=== PATIENT | female | born 1940 | race Asian ===

== ENCOUNTER 2016-10-23 05:07 | Inpatient (IN) | payer MEDICARE, MEDICAID ==
[~2016-10-23] VITALS: Ht 170.2 cm; Wt 84.9 kg
[~2016-10-23 05:07] MED LIST: AMLO10TA4 PO; AMLO2.5T PO; AMLO5TAB2 PO; AMOX-291 PO; ASPI-515 PO; ATOR10TA PO; ATOR40TA78 PO; CARV12.52 PO; CEFD300C37 PO; CHLO25TA MT; GUAI200T3 PO; HYDR-3341 PO; HYDR-3342 PO; INSU100V13 SC; INSU100V5 SQ-INSULIN; LISI-170 PO; NOVOLOG 70/30 SQ; QUIN40TA PO; QUIN40TA7 PO; STATIN
[2016-10-23] MEDS ORDERED: SODIUM CHLORIDE 0.9% 1,000ML IVBOLUS ONE ×2 (05:30→07:30)
[2016-10-23 05:59] LABS: HEMATOCRIT 28.4 % (34.6-47.8); HEMOGLOBIN 9.4 g/dL (11.7-16.4); WHITE BLOOD COUNT 11.9 x10^3/uL (3.4-10)
[2016-10-23 06:18] LABS: BLOOD UREA NITROGEN 53 mg/dL (7-18)
[2016-10-23 06:22] LABS: IS PT STATUS REG ER OR PRE ER? YES
[2016-10-23] MEDS ORDERED: IRON45TA6 PO (07:38)
[2016-10-23] MEDS: INSULIN DETEMIR 100 UNITS/ML, PEN SQ-INSULIN SCH ×2 (09:00→21:53)
[2016-10-23] MEDS: ASPIRIN 81 MG TABLET EC PO SCH (09:00)
[2016-10-23] MEDS ORDERED: hydrALAzine 20 MG/ML, 1ML IVPush PRN (09:00)
[2016-10-23] MEDS: CARVEDILOL 12.5 MG TABLET PO SCH ×2 (09:00→21:52)
[2016-10-23] MEDS ORDERED: DEXTROSE 50%, 50ML SYRINGE IVPush PRN (09:00)
[2016-10-23] MEDS ORDERED: morphine SULFATE 10 MG/ML, 1ML IVPush PRN (09:00)
[2016-10-23] MEDS ORDERED: DEXTROSE 4 GM TAB.CHEW PO PRN (09:00)
[2016-10-23] MEDS ORDERED: POLYETHYLENE GLYCOL 17 GM PACKET PO PRN (09:00)
[2016-10-23] MEDS ORDERED: ACETAMINOPHEN 325 MG TABLET PO PRN (09:00)
[2016-10-23] MEDS ORDERED: PHARMACY MAY ADJ FOR RENAL FX MC PRN (09:00)
[2016-10-23] MEDS ORDERED: INSULIN DETEMIR 100 UNITS/ML, PEN SQ-INSULIN SCH (09:00)
[2016-10-23] MEDS ORDERED: DOCUSATE 100 MG CAPSULE PO PRN (09:00)
[2016-10-23] MEDS ORDERED: ONDANSETRON 2MG/ML, 2ML IVPush PRN (09:00)
[2016-10-23] MEDS ORDERED: HYDROcodone/APAP 5/325 TABLET PO PRN (09:00)
[2016-10-23] MEDS ORDERED: GLUCAGON 1 MG IM PRN (09:00)
[2016-10-23] MEDS: HEPARIN 5,000 UNITS/ML, 1ML SQ SCH ×2 (11:00→21:52)
[2016-10-23] MEDS: INSULIN ASPART 100 UNITS/ML, PEN SQ-INSULIN SCH ×3 (11:00→21:53)
[2016-10-23 13:28] LABS: POTASSIUM,URINE RANDOM 20 mmol/L
[2016-10-23 14:00] VITALS: BP 167/77
[2016-10-23] MEDS: AMLODIPINE 5 MG TABLET PO SCH (16:14)
[2016-10-23] MEDS: FERROUS SULFATE 325 MG TABLET PO SCH (16:14)
[2016-10-23] MEDS: SODIUM CHLORIDE FLUSH 10ML SYR IVF SCH ×2 (16:17→21:52)
[2016-10-23] MEDS: SODIUM CHLORIDE 0.9% 1,000 ML IV SCH (16:32)
[2016-10-23 19:31] VITALS: BP_SYST 171; BP_SYST 173; BP_DIAS 61; BP_DIAS 68
[2016-10-23 19:45] VITALS: BP 164/74
[2016-10-24 01:44] VITALS: BP 127/67
[2016-10-24] MEDS: SODIUM CHLORIDE 0.9% 1,000 ML IV SCH ×3 (02:45→22:52)
[2016-10-24] MEDS: HEPARIN 5,000 UNITS/ML, 1ML SQ SCH ×3 (05:37→21:15)
[2016-10-24 05:42] LABS: HEMATOCRIT 24.3 % (34.6-47.8); HEMOGLOBIN 8.2 g/dL (11.7-16.4); WHITE BLOOD COUNT 8.6 x10^3/uL (3.4-10)
[2016-10-24 05:45] LABS: ASPARTATE AMINO TRANSFERASE 14 U/L (15-37); BLOOD UREA NITROGEN 41 mg/dL (7-18)
[2016-10-24 06:38] VITALS: BP 154/75
[2016-10-24] MEDS: INSULIN ASPART 100 UNITS/ML, PEN SQ-INSULIN SCH ×4 (07:00→21:16)
[2016-10-24] MEDS: SODIUM CHLORIDE FLUSH 10ML SYR IVF SCH ×2 (08:02→21:15)
[2016-10-24] MEDS: CARVEDILOL 12.5 MG TABLET PO SCH ×2 (08:03→21:15)
[2016-10-24] MEDS: AMLODIPINE 5 MG TABLET PO SCH (08:03)
[2016-10-24] MEDS: FERROUS SULFATE 325 MG TABLET PO SCH (08:03)
[2016-10-24] MEDS: ASPIRIN 81 MG TABLET EC PO SCH (08:03)
[2016-10-24] MEDS: INSULIN DETEMIR 100 UNITS/ML, PEN SQ-INSULIN SCH ×2 (08:08→21:16)
[2016-10-24 13:40] VITALS: BP 156/68
[2016-10-24 19:06] VITALS: BP_SYST 145; BP_SYST 146; BP_DIAS 67; BP_DIAS 93
[2016-10-25 00:40] VITALS: BP 149/70
[2016-10-25] MEDS: HEPARIN 5,000 UNITS/ML, 1ML SQ SCH ×2 (06:07→12:37)
[2016-10-25 06:15] LABS: BLOOD UREA NITROGEN 35 mg/dL (7-18)
[2016-10-25] MEDS: INSULIN ASPART 100 UNITS/ML, PEN SQ-INSULIN SCH ×2 (07:00→11:00)
[2016-10-25 07:38] VITALS: BP 167/72
[2016-10-25] MEDS: AMLODIPINE 5 MG TABLET PO SCH (09:00)
[2016-10-25] MEDS: INSULIN DETEMIR 100 UNITS/ML, PEN SQ-INSULIN SCH (09:00)
[2016-10-25] MEDS: CARVEDILOL 12.5 MG TABLET PO SCH (09:00)
[2016-10-25] MEDS: ASPIRIN 81 MG TABLET EC PO SCH (09:00)
[2016-10-25] MEDS: FERROUS SULFATE 325 MG TABLET PO SCH (09:00)
[2016-10-25] MEDS: SODIUM CHLORIDE FLUSH 10ML SYR IVF SCH (10:39)
[2016-10-25 13:47] VITALS: BP 160/88
== END 2016-10-25 14:40 | disposition home or self-care (01) | DRG 682 ==
LOC: ED 05:39 → EDIP 08:34 → 4EST 09:44
DX: I12.9 Hypertensive chronic kidney disease with stage 1 through stage 4 chronic kidney disease, or unspecified chronic kidney disease (principal); N17.0 Acute kidney failure with tubular necrosis; E44.1 Mild protein-calorie malnutrition; N18.4 Chronic kidney disease, stage 4 (severe); E11.22 Type 2 diabetes mellitus with diabetic chronic kidney disease; D63.8 Anemia in other chronic diseases classified elsewhere; D50.9 Iron deficiency anemia, unspecified; E86.0 Dehydration; Z79.4 Long term (current) use of insulin; Z82.49 Family history of ischemic heart disease and other diseases of the circulatory system; Z68.29 Body mass index [BMI] 29.0-29.9, adult; Z88.6 Allergy status to analgesic agent
CPT/HCPCS: 36415; 71010; 80048; 80053; 81001; 82040; 82306; 82436; 82962; 83036; 83540; 83550; 83605; 83735; 83970; 84100; 84133; 84300; 84443; 84484; 85025; 87040; 93005; 96360; J1644; J1815; J7030

== ENCOUNTER 2016-12-20 06:25 | Inpatient (IN) | payer MEDICARE, MEDICAID ==
[~2016-12-20] VITALS: Ht 170.2 cm; Wt 85.0 kg
[~2016-12-20 06:25] MED LIST changes: +IRON45TA6 PO; +QUIN40TA15 PO; -QUIN40TA7 PO
[2016-12-20] MEDS ORDERED: SODIUM CHLORIDE 0.9% 1,000 ML IV ONE ×2 (07:38→08:58)
[2016-12-20] MEDS ORDERED: SODIUM CHLORIDE 0.9% 1,000ML IVBOLUS ONE (08:00)
[2016-12-20] MEDS ORDERED: SODIUM CHLORIDE FLUSH 10ML SYR IVF ONE (08:00)
[2016-12-20] MEDS ORDERED: ONDANSETRON 2MG/ML, 2ML IVP ONE (08:00)
[2016-12-20 08:10] LABS: HEMATOCRIT 32.3 % (34.6-47.8); HEMOGLOBIN 10.8 g/dL (11.7-16.4); WHITE BLOOD COUNT 14.1 x10^3/uL (3.4-10)
[2016-12-20 08:15] LABS: PATH.CAST-FLAG NOT PRESENT; SPERM-FLAG NOT PRESENT; XTAL-FLAG NOT PRESENT; YLC-FLAG NOT PRESENT
[2016-12-20 08:19] LABS: ASPARTATE AMINO TRANSFERASE 29 U/L (15-37); BLOOD UREA NITROGEN 58 mg/dL (7-18)
[2016-12-20 08:24] LABS: IS PT STATUS REG ER OR PRE ER? YES
[2016-12-20 08:32] LABS: SRC-FLAG NOT PRESENT
[2016-12-20] MEDS ORDERED: SODIUM CHLORIDE FLUSH 10ML SYR IVF PRN (09:00)
[2016-12-20] MEDS ORDERED: ONDANSETRON 2MG/ML, 2ML ONE (09:26)
[2016-12-20 12:07] VITALS: BP 153/68
[2016-12-20 13:32] VITALS: BP 153/68
[2016-12-20] MEDS: SODIUM CHLORIDE 0.9% 1,000 ML IV SCH (15:19)
[2016-12-20] MEDS ORDERED: ONDANSETRON 2MG/ML, 2ML IVPush PRN (15:30)
[2016-12-20] MEDS: HEPARIN 5,000 UNITS/ML, 1ML SQ SCH ×2 (15:30→23:30)
[2016-12-20] MEDS ORDERED: PROMETHAZINE 25 MG/ML, 1ML IM PRN (15:30)
[2016-12-20] MEDS ORDERED: DOCUSATE 100 MG CAPSULE PO PRN (15:30)
[2016-12-20] MEDS ORDERED: BISACODYL 10 MG SUPP PR PRN (15:30)
[2016-12-20] MEDS ORDERED: POLYETHYLENE GLYCOL 17 GM PACKET PO PRN (15:30)
[2016-12-20] MEDS ORDERED: DEXTROSE 4 GM TAB.CHEW PO PRN (15:30)
[2016-12-20] MEDS ORDERED: DEXTROSE 50%, 50ML SYRINGE IVPush PRN (15:30)
[2016-12-20] MEDS ORDERED: ACETAMINOPHEN 325 MG TABLET PO PRN (15:30)
[2016-12-20] MEDS ORDERED: GLUCAGON 1 MG IM PRN (15:30)
[2016-12-20 16:14] LABS: RAPID INFLUENZA A Negative (Negative); RAPID INFLUENZA B Negative (Negative)
[2016-12-20 16:53] LABS: IS PT STATUS REG ER OR PRE ER? NO
[2016-12-20] MEDS: INSULIN ASPART 100 UNITS/ML, PEN SQ-INSULIN SCH ×2 (17:17→21:00)
[2016-12-20 20:43] VITALS: BP 145/72
[2016-12-20 21:51] LABS: IS PT STATUS REG ER OR PRE ER? NO
[2016-12-20] MEDS: SODIUM CHLORIDE FLUSH 10ML SYR IVF SCH (22:00)
[2016-12-20] MEDS: CARVEDILOL 12.5 MG TABLET PO SCH (22:00)
[2016-12-21] VITALS (7 sets, daily range): BP systolic 131–167; BP diastolic 60–70
[2016-12-21] MEDS: SODIUM CHLORIDE 0.9% 1,000 ML IV SCH ×3 (00:49→20:32)
[2016-12-21 05:29] LABS: HEMATOCRIT 27.1 % (34.6-47.8); HEMOGLOBIN 9.1 g/dL (11.7-16.4); WHITE BLOOD COUNT 9.1 x10^3/uL (3.4-10)
[2016-12-21 05:38] LABS: BLOOD UREA NITROGEN 52 mg/dL (7-18)
[2016-12-21 05:43] LABS: ASPARTATE AMINO TRANSFERASE 16 U/L (15-37)
[2016-12-21] MEDS: INSULIN ASPART 100 UNITS/ML, PEN SQ-INSULIN SCH ×4 (07:00→20:33)
[2016-12-21] MEDS: AMLODIPINE 5 MG TABLET PO SCH (09:00)
[2016-12-21] MEDS: HEPARIN 5,000 UNITS/ML, 1ML SQ SCH ×2 (09:04→17:40)
[2016-12-21] MEDS: CARVEDILOL 12.5 MG TABLET PO SCH ×2 (09:07→20:32)
[2016-12-21] MEDS: SODIUM CHLORIDE FLUSH 10ML SYR IVF SCH ×2 (09:09→20:33)
[2016-12-21] MEDS: ASPIRIN 81 MG TABLET EC PO SCH (10:19)
[2016-12-21] MEDS ORDERED: PROMETHAZINE 25 MG/ML, 1ML IM PRN (16:00)
[2016-12-21] MEDS ORDERED: BISACODYL 10 MG SUPP PR PRN (16:00)
[2016-12-21] MEDS ORDERED: DEXTROSE 4 GM TAB.CHEW PO PRN (16:00)
[2016-12-21] MEDS ORDERED: DEXTROSE 50%, 50ML SYRINGE IVPush PRN (16:00)
[2016-12-21] MEDS ORDERED: POLYETHYLENE GLYCOL 17 GM PACKET PO PRN (16:00)
[2016-12-21] MEDS ORDERED: ACETAMINOPHEN 325 MG TABLET PO PRN (16:00)
[2016-12-21] MEDS ORDERED: GLUCAGON 1 MG IM PRN (16:00)
[2016-12-21] MEDS ORDERED: ONDANSETRON 2MG/ML, 2ML IVPush PRN (16:00)
[2016-12-22] MEDS: HEPARIN 5,000 UNITS/ML, 1ML SQ SCH ×4 (00:23→23:39)
[2016-12-22 02:00] VITALS: BP 163/74
[2016-12-22 05:43] LABS: HEMATOCRIT 26.8 % (34.6-47.8); HEMOGLOBIN 9.1 g/dL (11.7-16.4); WHITE BLOOD COUNT 7.3 x10^3/uL (3.4-10)
[2016-12-22 05:50] LABS: BLOOD UREA NITROGEN 41 mg/dL (7-18)
[2016-12-22] MEDS: INSULIN ASPART 100 UNITS/ML, PEN SQ-INSULIN SCH ×4 (07:00→21:31)
[2016-12-22 07:37] VITALS: BP 172/67
[2016-12-22] MEDS: SODIUM CHLORIDE 0.9% 1,000 ML IV SCH ×2 (07:40→17:31)
[2016-12-22] MEDS: CARVEDILOL 12.5 MG TABLET PO SCH ×2 (07:42→21:14)
[2016-12-22] MEDS: AMLODIPINE 5 MG TABLET PO SCH (07:43)
[2016-12-22] MEDS: ASPIRIN 81 MG TABLET EC PO SCH (07:43)
[2016-12-22] MEDS: SODIUM CHLORIDE FLUSH 10ML SYR IVF SCH ×2 (10:26→21:14)
[2016-12-22 15:40] VITALS: BP 172/63
[2016-12-22] MEDS: ISOSORBIDE MONONITRATE ER 30 MG TABLET PO SCH (17:31)
[2016-12-22 20:30] VITALS: BP 148/69
[2016-12-23 02:40] VITALS: BP 126/60
[2016-12-23] MEDS: SODIUM CHLORIDE 0.9% 1,000 ML IV SCH (03:55)
[2016-12-23 04:56] VITALS: BP 141/54
[2016-12-23 05:49] LABS: BLOOD UREA NITROGEN 35 mg/dL (7-18)
[2016-12-23] MEDS: INSULIN ASPART 100 UNITS/ML, PEN SQ-INSULIN SCH ×2 (07:00→11:00)
[2016-12-23 08:27] VITALS: BP 157/65
[2016-12-23] MEDS: SODIUM CHLORIDE FLUSH 10ML SYR IVF SCH (08:30)
[2016-12-23] MEDS: CARVEDILOL 12.5 MG TABLET PO SCH (08:30)
[2016-12-23] MEDS: HEPARIN 5,000 UNITS/ML, 1ML SQ SCH (08:30)
[2016-12-23] MEDS: ASPIRIN 81 MG TABLET EC PO SCH (08:30)
[2016-12-23] MEDS: ISOSORBIDE MONONITRATE ER 30 MG TABLET PO SCH (08:30)
[2016-12-23] MEDS: AMLODIPINE 5 MG TABLET PO SCH (08:31)
[2016-12-23] MEDS ORDERED: MAGNESIUM SULFATE PMX 2GM/50ML 50 ML IV ONE (09:00)
[2016-12-23] MEDS ORDERED: ISOS60TA36 PO (09:40)
[2016-12-23 12:00] VITALS: BP 151/107
[2016-12-23 16:02] LABS: WESTNILEVIRUSIGG SEE PRINTED REPORT; WESTNILEVIRUSIGM SEE PRINTED REPORT
== END 2016-12-23 13:13 | disposition home or self-care (01) | DRG 865 ==
LOC: ED 08:57 → EDIP 08:58 → SUATTDRO 09:07 → ED 09:17 → 4WST 11:01 → DCLOUNGE 12-23 12:15
PROVIDERS: ADMIT Hospitalist; ATTEND Hospitalist
DX: B34.9 Viral infection, unspecified (principal); N17.0 Acute kidney failure with tubular necrosis; E87.1 Hypo-osmolality and hyponatremia; N18.4 Chronic kidney disease, stage 4 (severe); E11.21 Type 2 diabetes mellitus with diabetic nephropathy; E11.65 Type 2 diabetes mellitus with hyperglycemia; D63.8 Anemia in other chronic diseases classified elsewhere; D72.829 Elevated white blood cell count, unspecified; E11.22 Type 2 diabetes mellitus with diabetic chronic kidney disease; I12.9 Hypertensive chronic kidney disease with stage 1 through stage 4 chronic kidney disease, or unspecified chronic kidney disease; E78.5 Hyperlipidemia, unspecified; E86.0 Dehydration; Z79.4 Long term (current) use of insulin; Z82.49 Family history of ischemic heart disease and other diseases of the circulatory system; Z90.49 Acquired absence of other specified parts of digestive tract
CPT/HCPCS: 36415; 71010; 76770; 80048; 80053; 81001; 82436; 82570; 82962; 83735; 84100; 84133; 84300; 84484; 85025; 86788; 86789; 87400; 93005; 93306; 96374; J1644; J1815; J2405; J3475; J7030

== ENCOUNTER 2017-01-16 13:15 | Inpatient (IN) | payer MEDICARE, MEDICAID ==
[~2017-01-16] VITALS: Ht 167.6 cm; Wt 82.0 kg
[~2017-01-16 13:15] MED LIST changes: +ISOS60TA36 PO
[2017-01-16] MEDS ORDERED: SODIUM CHLORIDE FLUSH 10ML SYR IVF ONE (14:30)
[2017-01-16 14:40] LABS: HEMATOCRIT 30.3 % (34.6-47.8); HEMOGLOBIN 10.1 g/dL (11.7-16.4); WHITE BLOOD COUNT 9.9 x10^3/uL (3.4-10)
[2017-01-16 14:54] LABS: BLOOD UREA NITROGEN 48 mg/dL (7-18)
[2017-01-16 14:59] LABS: ASPARTATE AMINO TRANSFERASE 15 U/L (15-37)
[2017-01-16 15:01] LABS: IS PT STATUS REG ER OR PRE ER? YES
[2017-01-16] MEDS ORDERED: SODIUM CHLORIDE FLUSH 10ML SYR IVF PRN (16:00)
[2017-01-16] MEDS ORDERED: HYDROcodone/APAP 5/325 TABLET PO PRN (16:30)
[2017-01-16] MEDS ORDERED: ONDANSETRON ODT 4 MG PO PRN (16:30)
[2017-01-16] MEDS ORDERED: ENOXAPARIN 40 MG/0.4 ML SQ SCH (16:30)
[2017-01-16] MEDS ORDERED: LABETALOL 5MG/ML, 20ML IVPush PRN (16:30)
[2017-01-16] MEDS ORDERED: ONDANSETRON 2MG/ML, 2ML IVPush PRN (16:30)
[2017-01-16 17:46] VITALS: BP_SYST 155; BP_SYST 159; BP_SYST 173; BP_DIAS 73; BP_DIAS 74; BP_DIAS 82
[2017-01-16] MEDS: SODIUM CHLORIDE 0.9% 1,000 ML IV SCH (18:12)
[2017-01-16] MEDS: INSULIN ASPART 100 UNITS/ML, PEN SQ-INSULIN SCH ×2 (18:30→20:43)
[2017-01-16 18:56] LABS: PATH.CAST-FLAG NOT PRESENT; SPERM-FLAG NOT PRESENT; SRC-FLAG NOT PRESENT; XTAL-FLAG NOT PRESENT; YLC-FLAG NOT PRESENT
[2017-01-16 20:11] VITALS: BP_SYST 170; BP_SYST 180; BP_DIAS 72; BP_DIAS 73
[2017-01-16 20:59] LABS: IS PT STATUS REG ER OR PRE ER? NO
[2017-01-16] MEDS ORDERED: INSULIN ASPART 100 UNITS/ML, PEN SQ-INSULIN SCH (21:00)
[2017-01-16 21:40] VITALS: BP 128/64
[2017-01-17] VITALS (9 sets, daily range): BP systolic 147–198; BP diastolic 65–74
[2017-01-17] MEDS: SODIUM CHLORIDE 0.9% 1,000 ML IV SCH (03:45)
[2017-01-17 05:25] LABS: BLOOD UREA NITROGEN 47 mg/dL (7-18)
[2017-01-17 05:29] LABS: ASPARTATE AMINO TRANSFERASE 11 U/L (15-37)
[2017-01-17 05:29] LABS: HEMATOCRIT 26.7 % (34.6-47.8); WHITE BLOOD COUNT 7.4 x10^3/uL (3.4-10)
[2017-01-17 05:38] LABS: IS PT STATUS REG ER OR PRE ER? NO
[2017-01-17] MEDS: INSULIN ASPART 100 UNITS/ML, PEN SQ-INSULIN SCH ×4 (07:00→21:08)
[2017-01-17] MEDS ORDERED: ENALAPRILAT 1.25 MG/ML, 2ML IV PRN (07:30)
[2017-01-17] MEDS ORDERED: ENALAPRILAT 1.25 MG/ML, 2ML ONE (07:31)
[2017-01-17] MEDS ORDERED: hydrALAzine 20 MG/ML, 1ML IV PRN (08:30)
[2017-01-17] MEDS: ASPIRIN 81 MG TABLET EC PO SCH (08:55)
[2017-01-17] MEDS: ISOSORBIDE MONONITRATE ER 60 MG TABLET PO SCH (08:55)
[2017-01-17] MEDS: FERROUS SULFATE 325 MG TABLET PO SCH (08:55)
[2017-01-17] MEDS: SENNA/DOCUSATE TABLET PO SCH (08:57)
[2017-01-17] MEDS: AMLODIPINE 5 MG TABLET PO SCH (10:44)
[2017-01-17] MEDS: HEPARIN 5,000 UNITS/ML, 1ML SQ SCH ×2 (15:20→23:04)
[2017-01-17] MEDS ORDERED: CARVEDILOL 3.125 MG TABLET ONE (16:52)
[2017-01-17] MEDS: CARVEDILOL 3.125 MG TABLET PO SCH (17:00)
[2017-01-17] MEDS ORDERED: ENOXAPARIN 30 MG/0.3 ML SQ SCH (18:00)
[2017-01-17] MEDS: SODIUM BICARBONATE 650 MG TABLET PO SCH (21:00)
[2017-01-18] VITALS (8 sets, daily range): BP systolic 142–182; BP diastolic 65–77
[2017-01-18 04:47] LABS: HEMATOCRIT 27.5 % (34.6-47.8); HEMOGLOBIN 9.3 g/dL (11.7-16.4); WHITE BLOOD COUNT 7.8 x10^3/uL (3.4-10)
[2017-01-18 04:53] LABS: BLOOD UREA NITROGEN 47 mg/dL (7-18)
[2017-01-18] MEDS: CARVEDILOL 3.125 MG TABLET PO SCH ×2 (05:40→18:30)
[2017-01-18] MEDS: INSULIN ASPART 100 UNITS/ML, PEN SQ-INSULIN SCH ×4 (07:00→19:48)
[2017-01-18] MEDS ORDERED: FUROSEMIDE 40 MG/4 ML IV ONE (08:00)
[2017-01-18] MEDS: SODIUM BICARBONATE 650 MG TABLET PO SCH ×2 (09:00→19:47)
[2017-01-18] MEDS: SENNA/DOCUSATE TABLET PO SCH (09:00)
[2017-01-18] MEDS: AMLODIPINE 5 MG TABLET PO SCH (10:05)
[2017-01-18] MEDS: ISOSORBIDE MONONITRATE ER 60 MG TABLET PO SCH (10:05)
[2017-01-18] MEDS: FERROUS SULFATE 325 MG TABLET PO SCH (10:06)
[2017-01-18] MEDS: ASPIRIN 81 MG TABLET EC PO SCH (10:06)
[2017-01-18] MEDS: HEPARIN 5,000 UNITS/ML, 1ML SQ SCH ×2 (10:07→18:29)
[2017-01-19 01:07] VITALS: BP 145/68
[2017-01-19] MEDS: HEPARIN 5,000 UNITS/ML, 1ML SQ SCH ×2 (02:18→08:08)
[2017-01-19 04:56] LABS: HEMATOCRIT 29.2 % (34.6-47.8); HEMOGLOBIN 9.9 g/dL (11.7-16.4); WHITE BLOOD COUNT 7.9 x10^3/uL (3.4-10)
[2017-01-19 05:03] LABS: ASPARTATE AMINO TRANSFERASE 15 U/L (15-37); BLOOD UREA NITROGEN 48 mg/dL (7-18)
[2017-01-19] MEDS: CARVEDILOL 3.125 MG TABLET PO SCH (06:42)
[2017-01-19] MEDS: INSULIN ASPART 100 UNITS/ML, PEN SQ-INSULIN SCH ×2 (07:17→11:38)
[2017-01-19 07:53] VITALS: BP 156/72
[2017-01-19] MEDS: FERROUS SULFATE 325 MG TABLET PO SCH (08:06)
[2017-01-19] MEDS: SENNA/DOCUSATE TABLET PO SCH (08:06)
[2017-01-19] MEDS: ASPIRIN 81 MG TABLET EC PO SCH (08:06)
[2017-01-19] MEDS: ISOSORBIDE MONONITRATE ER 60 MG TABLET PO SCH (08:06)
[2017-01-19] MEDS: AMLODIPINE 5 MG TABLET PO SCH (08:07)
[2017-01-19] MEDS: SODIUM BICARBONATE 650 MG TABLET PO SCH (08:08)
[2017-01-19] MEDS ORDERED: CHLORTHALIDONE 25 MG TABLET PO SCH (09:00)
[2017-01-19] MEDS ORDERED: CARV3.1212 PO (12:14)
[2017-01-19] MEDS ORDERED: CHLO25TA PO (12:14)
== END 2017-01-19 13:18 | disposition home or self-care (01) | DRG 682 ==
LOC: ED 15:26 → EDIP 15:48 → 5SO 17:27 → DCLOUNGE 01-19 13:03
PROVIDERS: ADMIT Internal Medicine; ATTEND Internal Medicine
DX: N17.9 Acute kidney failure, unspecified (principal); E43 Unspecified severe protein-calorie malnutrition; E11.21 Type 2 diabetes mellitus with diabetic nephropathy; E11.65 Type 2 diabetes mellitus with hyperglycemia; I13.0 Hypertensive heart and chronic kidney disease with heart failure and stage 1 through stage 4 chronic kidney disease, or unspecified chronic kidney disease; I50.30 Unspecified diastolic (congestive) heart failure; N18.4 Chronic kidney disease, stage 4 (severe); R55 Syncope and collapse; I25.10 Atherosclerotic heart disease of native coronary artery without angina pectoris; D63.1 Anemia in chronic kidney disease; E11.22 Type 2 diabetes mellitus with diabetic chronic kidney disease; E78.5 Hyperlipidemia, unspecified; I44.0 Atrioventricular block, first degree; Z82.49 Family history of ischemic heart disease and other diseases of the circulatory system; Z90.49 Acquired absence of other specified parts of digestive tract
CPT/HCPCS: 36415; 70450; 71010; 76770; 80048; 80053; 81001; 82040; 82570; 82962; 83036; 83605; 83735; 83880; 84300; 84439; 84443; 84484; 85025; 85610; 85730; 93005; 93306; 93880; 99285; J1644; J1650; J1815; J1940; J7030

== ENCOUNTER 2017-05-17 03:34 | Observation (INO) | payer MEDICARE, MEDICAID ==
[~2017-05-17] VITALS: Ht 162.6 cm; Wt 80.5 kg
[~2017-05-17 03:34] MED LIST changes: +CARV3.1212 PO; +CHLO25TA PO
[2017-05-17] MEDS ORDERED: SODIUM CHLORIDE FLUSH 10ML SYR IVF ONE ×2 (04:00→07:30)
[2017-05-17] MEDS ORDERED: ASPIRIN 81 MG TABLET CHEW PO ONE ×2 (04:00→07:30)
[2017-05-17 04:46] LABS: BASOPHILS # (AUTO) 0.06 x10^3/uL (0-0.1); BASOPHILS % (AUTO) 1 % (0-1); EOSINOPHILS # (AUTO) 0.19 x10^3/uL (0-0.4); EOSINOPHILS % (AUTO) 2 % (1-7); LYMPHOCYTES # (AUTO) 2.21 x10^3/uL (1-3.4); LYMPHOCYTES % (AUTO) 19 % (22-44); MD NO; MEAN CORPUSCULAR HEMOGLOBIN 30.2 pg (27.0-34.8); MEAN CORPUSCULAR VOLUME 88.6 fL (80-100); MEAN PLATELET VOLUME 6.9 fL (7.4-10.4); MONOCYTES # (AUTO) 0.73 x10^3/uL (0.2-0.8); MONOCYTES % (AUTO) 6 % (2-9); NEUTROPHILS # (AUTO) 8.17 x10^3/uL (1.8-6.8); NEUTROPHILS % (AUTO) 72 % (42-75); PLATELET COUNT 305 x10^3/uL (130-400); RED BLOOD COUNT 3.32 x10^6/uL (3.82-5.3); RED CELL DISTRIBUTION WIDTH 14.2 % (9.6-15.2)
[2017-05-17] MEDS ORDERED: CITA20TA5 PO (04:51)
[2017-05-17] MEDS ORDERED: CARV6.252 PO (04:51)
[2017-05-17 04:56] LABS: ALANINE AMINOTRANSFERASE 26 U/L (12-78); ANION GAP 8 mmol/L (5-15); CALCIUM 8.5 mg/dL (8.5-10.1); CHLORIDE 108 mmol/L (98-107); CREATININE 3.98 mg/dL (0.55-1.02)
[2017-05-17 05:00] LABS: ALKALINE PHOSPHATASE 114 U/L (45-117); BILIRUBIN,TOTAL 0.3 mg/dL (0.2-1.0); TOTAL PROTEIN 7.5 g/dL (6.4-8.2); TROPONIN I < 0.015 ng/mL (0.000-0.045)
[2017-05-17] MEDS ORDERED: ONDANSETRON 2MG/ML, 2ML IVPush ONE (07:30)
[2017-05-17] MEDS ORDERED: MORPHINE SULFATE 4 MG/ML, 1ML IVPush PRN (07:30)
[2017-05-17] MEDS ORDERED: ASPIRIN 81 MG TABLET CHEW ONE (08:34)
[2017-05-17] MEDS ORDERED: ONDANSETRON 2MG/ML, 2ML ONE (08:34)
[2017-05-17 09:05] VITALS: BP 164/78
[2017-05-17] MEDS ORDERED: NITROGLYCERIN 0.4 MG BOTTLE (25 TABS) SL PRN ×2 (09:30)
[2017-05-17] MEDS ORDERED: ASPIRIN 325 MG TABLET EC PO ONE (09:30)
[2017-05-17] MEDS ORDERED: NITROGLYCERIN 0.4 MG/SPRAY SL PRN ×2 (09:30)
[2017-05-17 09:58] LABS: CHOLESTEROL, TOTAL 205 mg/dL (140-239); TRIGLYCERIDES 167 mg/dL (50-200); VLDL CHOLESTEROL 33 mg/dL (0-25)
[2017-05-17 10:01] LABS: CHOL/HDL RATIO 3.7; HDL CHOL % 27 % (28-40); HDL CHOLESTEROL (DIRECT) 56 mg/dL (40-60); LDL CHOLESTEROL,CALCULATED 116 mg/dL (54-169); LDL/HDL RATIO 2.1 (0.5-3.0); TROPONIN I < 0.015 ng/mL (0.000-0.045)
[2017-05-17] MEDS ORDERED: REGADENOSON 0.4 MG/5 ML SYRINGE ONE (10:52)
[2017-05-17] MEDS ORDERED: INSULIN LISPRO 100 UNITS/ML, PEN SQ-INSULIN SCH (11:00)
[2017-05-17 14:48] VITALS: BP 163/69
[2017-05-17 15:17] LABS: BASOPHILS # (AUTO) 0.05 x10^3/uL (0-0.1); BASOPHILS % (AUTO) 1 % (0-1); EOSINOPHILS # (AUTO) 0.11 x10^3/uL (0-0.4); EOSINOPHILS % (AUTO) 1 % (1-7); LYMPHOCYTES # (AUTO) 2.17 x10^3/uL (1-3.4); LYMPHOCYTES % (AUTO) 21 % (22-44); MD NO; MEAN CORPUSCULAR HGB CONC 33.4 g/dL (32.4-35.8); MEAN CORPUSCULAR VOLUME 89.8 fL (80-100); MEAN PLATELET VOLUME 6.6 fL (7.4-10.4); MONOCYTES % (AUTO) 7 % (2-9); NEUTROPHILS # (AUTO) 7.42 x10^3/uL (1.8-6.8); NEUTROPHILS % (AUTO) 71 % (42-75); PLATELET COUNT 296 x10^3/uL (130-400); RED BLOOD COUNT 3.18 x10^6/uL (3.82-5.3)
[2017-05-17 15:26] LABS: ANION GAP 10 mmol/L (5-15); CALCIUM 7.9 mg/dL (8.5-10.1); CHLORIDE 107 mmol/L (98-107); CREATININE 3.92 mg/dL (0.55-1.02)
[2017-05-17 15:29] LABS: TROPONIN I < 0.015 ng/mL (0.000-0.045)
[2017-05-17] MEDS ORDERED: CARVEDILOL 3.125 MG TABLET PO SCH (18:00)
[2017-05-17] MEDS ORDERED: INSULIN GLARGINE 100 UNITS/ML, PEN SQ-INSULIN SCH (21:00)
[2017-05-17] MEDS ORDERED: SODIUM CHLORIDE FLUSH 10ML SYR IVF SCH (21:00)
[2017-05-18] MEDS ORDERED: ASPIRIN 325 MG TABLET EC PO SCH (06:00)
[2017-05-18] MEDS ORDERED: CHLORTHALIDONE 25 MG TABLET PO SCH (09:00)
[2017-05-18] MEDS ORDERED: ASPIRIN 81 MG TABLET EC PO SCH (09:00)
[2017-05-18] MEDS ORDERED: CITALOPRAM 20 MG TABLET PO SCH (09:00)
[2017-05-18] MEDS ORDERED: AMLODIPINE 5 MG TABLET PO SCH (09:00)
== END 2017-05-17 17:17 | disposition home or self-care (01) ==
LOC: ED 07:30 → EDIP 07:59 → INTOOBSV 07:59 → 5SO 08:45
PROVIDERS: ADMIT Internal Medicine; ATTEND Internal Medicine
DX: R07.89 Other chest pain (principal); I12.9 Hypertensive chronic kidney disease with stage 1 through stage 4 chronic kidney disease, or unspecified chronic kidney disease; N18.9 Chronic kidney disease, unspecified; E11.22 Type 2 diabetes mellitus with diabetic chronic kidney disease; E11.65 Type 2 diabetes mellitus with hyperglycemia; E78.5 Hyperlipidemia, unspecified; D72.829 Elevated white blood cell count, unspecified; N17.9 Acute kidney failure, unspecified; D64.9 Anemia, unspecified; Z82.49 Family history of ischemic heart disease and other diseases of the circulatory system
CPT/HCPCS: 36415; 71045; 78452; 80048; 80053; 80061; 82962; 83880; 84484; 85025; 93005; 93017; 96372; 96374; 99285; A9502; C9898; G0378; J1815; J2405; J2785

== ENCOUNTER 2017-07-20 22:22 | Inpatient (IN) | payer MEDICARE, MEDICAID ==
[~2017-07-20] VITALS: Ht 157.5 cm; Wt 82.1 kg
[~2017-07-20 22:22] MED LIST changes: +CARV6.252 PO; +CITA20TA5 PO
[2017-07-20] MEDS ORDERED: hydrALAzine 20 MG/ML, 1ML ONE (22:48)
[2017-07-20] MEDS ORDERED: hydrALAzine 20 MG/ML, 1ML IV ONE (23:00)
[2017-07-20] MEDS ORDERED: INSU300I SQ-INSULIN (23:33)
[2017-07-21 00:12] LABS: BASOPHILS # (AUTO) 0.03 x10^3/uL (0-0.1); BASOPHILS % (AUTO) 0 % (0-1); EOSINOPHILS # (AUTO) 0.12 x10^3/uL (0-0.4); EOSINOPHILS % (AUTO) 1 % (1-7); LYMPHOCYTES # (AUTO) 1.92 x10^3/uL (1-3.4); LYMPHOCYTES % (AUTO) 18 % (22-44); MD NO; MEAN CORPUSCULAR HEMOGLOBIN 29.7 pg (27.0-34.8); MEAN CORPUSCULAR VOLUME 87.3 fL (80-100); MEAN PLATELET VOLUME 6.7 fL (7.4-10.4); MONOCYTES # (AUTO) 0.35 x10^3/uL (0.2-0.8); MONOCYTES % (AUTO) 3 % (2-9); NEUTROPHILS # (AUTO) 8.11 x10^3/uL (1.8-6.8); NEUTROPHILS % (AUTO) 77 % (42-75); PLATELET COUNT 332 x10^3/uL (130-400); RED BLOOD COUNT 3.54 x10^6/uL (3.82-5.3); RED CELL DISTRIBUTION WIDTH 12.9 % (9.6-15.2)
[2017-07-21 00:24] LABS: ALANINE AMINOTRANSFERASE 25 U/L (12-78); ANION GAP 14 mmol/L (5-15); CALCIUM 8.8 mg/dL (8.5-10.1); CHLORIDE 104 mmol/L (98-107); CREATININE 3.72 mg/dL (0.55-1.02)
[2017-07-21 00:29] LABS: ALKALINE PHOSPHATASE 107 U/L (45-117); BILIRUBIN,TOTAL 0.4 mg/dL (0.2-1.0); TOTAL PROTEIN 7.6 g/dL (6.4-8.2); TROPONIN I < 0.015 ng/mL (0.000-0.045)
[2017-07-21 02:02] VITALS: BP 178/86
[2017-07-21] MEDS ORDERED: SODIUM CHLORIDE 0.9% 1,000 ML IV SCH (05:06)
[2017-07-21] MEDS ORDERED: LABETALOL 5MG/ML, 20ML IVPush PRN (05:30)
[2017-07-21] MEDS ORDERED: OXYcodone IR 5MG TABLET PO PRN (05:30)
[2017-07-21] MEDS ORDERED: DOCUSATE 100 MG CAPSULE PO PRN (05:30)
[2017-07-21] MEDS ORDERED: ONDANSETRON 2MG/ML, 2ML IVPush PRN (05:30)
[2017-07-21] MEDS ORDERED: hydrALAzine 20 MG/ML, 1ML IVPush PRN (05:30)
[2017-07-21] MEDS ORDERED: BISACODYL 10 MG SUPP PR PRN (05:30)
[2017-07-21] MEDS ORDERED: POLYETHYLENE GLYCOL 17 GM PACKET PO PRN (05:30)
[2017-07-21] MEDS ORDERED: ACETAMINOPHEN 325 MG TABLET PO PRN (05:30)
[2017-07-21] MEDS ORDERED: morphine SULFATE 10 MG/ML, 1ML IVPush PRN (05:30)
[2017-07-21] MEDS ORDERED: ONDANSETRON ODT 4 MG PO PRN (05:30)
[2017-07-21] MEDS: HEPARIN 5,000 UNITS/ML, 1ML SQ SCH ×3 (05:34→21:42)
[2017-07-21 06:17] LABS: TROPONIN I < 0.015 ng/mL (0.000-0.045)
[2017-07-21 06:21] LABS: HEMOGLOBIN A1C 6.9 % (4.2-6.3)
[2017-07-21 06:31] LABS: FREE T4 (FREE THYROXINE) 1.18 ng/dL (0.76-1.46); THYROID STIMULATING HORMONE 1.82 mIU/L (0.358-3.740)
[2017-07-21 06:38] LABS: CULTURE INDICATED? NO; MICROSCOPIC AUTO
[2017-07-21 07:49] VITALS: BP 188/73
[2017-07-21] MEDS: AMLODIPINE 5 MG TABLET PO SCH (08:45)
[2017-07-21] MEDS: CITALOPRAM 20 MG TABLET PO SCH (08:46)
[2017-07-21] MEDS: CARVEDILOL 6.25 MG TABLET PO SCH ×2 (08:46→20:40)
[2017-07-21] MEDS: CHLORTHALIDONE 25 MG TABLET PO SCH (08:46)
[2017-07-21] MEDS: ASPIRIN 81 MG TABLET EC PO SCH (08:46)
[2017-07-21] MEDS: INSULIN GLARGINE 100 UNITS/ML, PEN SQ-INSULIN SCH ×2 (09:33→20:39)
[2017-07-21 09:36] VITALS: BP 143/70
[2017-07-21 12:32] VITALS: BP 157/70
[2017-07-21 12:35] LABS: TROPONIN I < 0.015 ng/mL (0.000-0.045)
[2017-07-21 19:04] VITALS: BP 154/68
[2017-07-22 02:45] VITALS: BP 144/58
[2017-07-22 05:35] LABS: ALANINE AMINOTRANSFERASE 20 U/L (12-78); ALBUMIN 2.5 g/dL (3.4-5.0); ANION GAP 7 mmol/L (5-15); CALCIUM 8.2 mg/dL (8.5-10.1); CHLORIDE 110 mmol/L (98-107); CHOLESTEROL, TOTAL 181 mg/dL (140-239); CREATININE 4.13 mg/dL (0.55-1.02)
[2017-07-22 05:37] LABS: ALKALINE PHOSPHATASE 87 U/L (45-117); BILIRUBIN,TOTAL 0.4 mg/dL (0.2-1.0); CHOL/HDL RATIO 3.8; HDL CHOL % 27 % (28-40); HDL CHOLESTEROL (DIRECT) 48 mg/dL (40-60); LDL CHOLESTEROL,CALCULATED 95 mg/dL (54-169); TOTAL PROTEIN 6.3 g/dL (6.4-8.2); TRIGLYCERIDES 190 mg/dL (50-200); VLDL CHOLESTEROL 38 mg/dL (0-25)
[2017-07-22 05:47] LABS: BASOPHILS # (AUTO) 0.04 x10^3/uL (0-0.1); BASOPHILS % (AUTO) 1 % (0-1); EOSINOPHILS # (AUTO) 0.17 x10^3/uL (0-0.4); EOSINOPHILS % (AUTO) 2 % (1-7); LYMPHOCYTES # (AUTO) 2.95 x10^3/uL (1-3.4); LYMPHOCYTES % (AUTO) 41 % (22-44); MD NO; MEAN CORPUSCULAR HEMOGLOBIN 29.6 pg (27.0-34.8); MEAN CORPUSCULAR HGB CONC 33.6 g/dL (32.4-35.8); MEAN CORPUSCULAR VOLUME 88.2 fL (80-100); MEAN PLATELET VOLUME 6.7 fL (7.4-10.4); MONOCYTES # (AUTO) 0.47 x10^3/uL (0.2-0.8); MONOCYTES % (AUTO) 7 % (2-9); NEUTROPHILS # (AUTO) 3.52 x10^3/uL (1.8-6.8); NEUTROPHILS % (AUTO) 49 % (42-75); PLATELET COUNT 267 x10^3/uL (130-400); RED BLOOD COUNT 2.91 x10^6/uL (3.82-5.3); RED CELL DISTRIBUTION WIDTH 13.1 % (9.6-15.2)
[2017-07-22] MEDS: HEPARIN 5,000 UNITS/ML, 1ML SQ SCH (07:00)
[2017-07-22 07:02] VITALS: BP 183/78
[2017-07-22] MEDS: AMLODIPINE 5 MG TABLET PO SCH (07:58)
[2017-07-22] MEDS: CARVEDILOL 6.25 MG TABLET PO SCH (07:58)
[2017-07-22] MEDS: CHLORTHALIDONE 25 MG TABLET PO SCH (07:58)
[2017-07-22] MEDS: CITALOPRAM 20 MG TABLET PO SCH (07:58)
[2017-07-22] MEDS: ASPIRIN 81 MG TABLET EC PO SCH (07:58)
[2017-07-22] MEDS: INSULIN GLARGINE 100 UNITS/ML, PEN SQ-INSULIN SCH (08:38)
[2017-07-22 13:10] VITALS: BP 137/62
== END 2017-07-22 14:10 | disposition home or self-care (01) | DRG 291 ==
LOC: ED 23:21 → 4WST 07-21 00:43 → DCLOUNGE 07-22 13:55
PROVIDERS: ADMIT Internal Medicine; ATTEND Internal Medicine
DX: I13.0 Hypertensive heart and chronic kidney disease with heart failure and stage 1 through stage 4 chronic kidney disease, or unspecified chronic kidney disease (principal); I50.33 Acute on chronic diastolic (congestive) heart failure; N18.4 Chronic kidney disease, stage 4 (severe); E44.0 Moderate protein-calorie malnutrition; E11.22 Type 2 diabetes mellitus with diabetic chronic kidney disease; I16.0 Hypertensive urgency; I25.10 Atherosclerotic heart disease of native coronary artery without angina pectoris; E78.5 Hyperlipidemia, unspecified; M54.2 Cervicalgia; D63.1 Anemia in chronic kidney disease; Z79.4 Long term (current) use of insulin; Z82.49 Family history of ischemic heart disease and other diseases of the circulatory system; Z68.33 Body mass index [BMI] 33.0-33.9, adult; Z90.49 Acquired absence of other specified parts of digestive tract; M19.012 Primary osteoarthritis, left shoulder
CPT/HCPCS: 36415; 70450; 71045; 72050; 80053; 80061; 81001; 82962; 83036; 83735; 83880; 84439; 84443; 84484; 85025; 87040; 93005; 96374; J1644; J0360; J1815; J7030

== ENCOUNTER 2018-03-01 12:53 | Emergency (ER) | payer MEDICARE, MEDICAID ==
[~2018-03-01] VITALS: Ht 157.5 cm; Wt 79.0 kg
[~2018-03-01 12:53] MED LIST changes: +AMLO-150 PO; -AMLO2.5T PO; +AMLO2.5T3 PO; -AMLO5TAB2 PO; -CITA20TA5 PO; +CITA20TA6 PO; +INSU300I SQ-INSULIN
[2018-03-01 14:21] LABS: BASOPHILS # (AUTO) 0.06 x10^3/uL (0-0.1); BASOPHILS % (AUTO) 1 % (0-1); EOSINOPHILS # (AUTO) 0.33 x10^3/uL (0-0.4); EOSINOPHILS % (AUTO) 4 % (1-7); LYMPHOCYTES # (AUTO) 2.29 x10^3/uL (1-3.4); LYMPHOCYTES % (AUTO) 29 % (22-44); MD NO; MEAN CORPUSCULAR HEMOGLOBIN 30.1 pg (27.0-34.8); MEAN CORPUSCULAR HGB CONC 33.4 g/dL (32.4-35.8); MEAN CORPUSCULAR VOLUME 90.1 fL (80-100); MEAN PLATELET VOLUME 6.6 fL (7.4-10.4); MONOCYTES # (AUTO) 0.47 x10^3/uL (0.2-0.8); MONOCYTES % (AUTO) 6 % (2-9); NEUTROPHILS # (AUTO) 4.84 x10^3/uL (1.8-6.8); NEUTROPHILS % (AUTO) 61 % (42-75); PLATELET COUNT 323 x10^3/uL (130-400); RED BLOOD COUNT 3.42 x10^6/uL (3.82-5.3)
--- NOTE | 2018-03-01 14:30 | NUR ---
PT TO BATHOOM WITH DAUGHTER. NAD NOTED. ERP IN FOR INITIAL ASSESSMENT
[2018-03-01 14:34] LABS: ALBUMIN 2.7 g/dL (3.4-5.0); ANION GAP 9 mmol/L (5-15); CHLORIDE 110 mmol/L (98-107); CREATININE 5.93 mg/dL (0.55-1.02)
[2018-03-01] MEDS ORDERED: SILVER NITRATE STICK TP ONE (14:47)
[2018-03-01] MEDS ORDERED: BENZOCAINE 20% SPRAY 0.5ML ONE (14:47)
[2018-03-01 14:58] VITALS: BP 188/80
[2018-03-01 14:58] LABS: MICROSCOPIC INDICATED
[2018-03-01 15:01] LABS: CULTURE INDICATED? NO
[2018-03-01 15:21] LABS: INTERNATIONAL NORMALIZED RATIO 0.93 (0.93-1.1); PROTHROMBIN TIME 9.9 Seconds (9.6-11.5)
--- NOTE | 2018-03-01 15:30 | NUR ---
POC IS DC. AWAITING DC INSTRUCTIONS. FAMILY REMAINS AT BEDSIDE. PT OFF MONITORING AND ALLOWED TO DRESS
--- NOTE | 2018-03-01 16:18 | NUR ---
DC EDUCATION PROVIDED, PT AND PT'S DAUGHTER DEMONSTRTE UNDERSTANDING. PT AMBUALTED STEADILY TO DC WITH RN AND FAMILY
== END 2018-03-01 16:20 | disposition home or self-care (01) ==
LOC: ED 15:43
DX: R04.0 Epistaxis (principal); I10 Essential (primary) hypertension; E11.65 Type 2 diabetes mellitus with hyperglycemia; E78.5 Hyperlipidemia, unspecified; Z90.89 Acquired absence of other organs
CPT/HCPCS: 30901; 36415; 71046; 80048; 81001; 82040; 85025; 85610; 93005; 99284

== ENCOUNTER 2018-12-24 16:53 | Inpatient (IN) | payer MEDICARE, MEDICAID ==
[~2018-12-24] VITALS: Ht 165.1 cm; Wt 79.9 kg
[~2018-12-24 16:53] MED LIST changes: -AMLO2.5T3 PO; +AMLO2.5T5 PO; +CALC667C PO; +CHOL-1 PO; +DOXY100T PO; +DOXY100T9 PO; +FERR324T5 PO; -GUAI200T3 PO; +GUAI200T37 PO; +HYDR-3343 PO; +INSU100I13 SQ-INSULIN; +ISON300T10 PO; +LINA5TAB PO; +LOSA50TA2 PO; +PYRI25TA2 PO; +SODI650T PO
--- NOTE | 2018-12-24 17:08 | NUR ---
ASSUMED CARE OF PATIENT. PATIENT BIB [facility] FOR DIALYSIS FOR SYNCOPAL EPISODE. PT IS VOMITING IN ROOM. PT FINISHED ALMOST ALL OF HER TREATMENT. PT REPORTS SHE HAS NOT FELT GOOD FOR A COULE OF DAYS. FAMILY AT BEDSIDE.
[2018-12-24] MEDS ORDERED: CALC667C PO (17:23)
--- NOTE | 2018-12-24 18:17 | NUR ---
REPORT GIVEN TO SUSAN BARKER FOR BREAK.
--- NOTE | 2018-12-24 18:25 | NUR ---
BREAK RN: PT IN DARKENED ROOM, SR PER MONITOR. FAMILY AT BEDSIDE. WAITING FOR ORDERS. NO NEEDS EXPRESSED AT THIS TIME.
--- NOTE | 2018-12-24 18:41 | NUR ---
REPORT TO ALICIA DAVIS
[2018-12-24 18:53] LABS: BASOPHILS # (AUTO) 0.02 x10^3/uL (0-0.1); BASOPHILS % (AUTO) 0 % (0-1); EOSINOPHILS # (AUTO) 0.12 x10^3/uL (0-0.4); EOSINOPHILS % (AUTO) 1 % (1-7); LYMPHOCYTES # (AUTO) 1.36 x10^3/uL (1-3.4); LYMPHOCYTES % (AUTO) 15 % (22-44); MD NO; MEAN CORPUSCULAR HEMOGLOBIN 30.5 pg (27.0-34.8); MEAN CORPUSCULAR HGB CONC 33.2 g/dL (32.4-35.8); MEAN CORPUSCULAR VOLUME 92.1 fL (80-100); MEAN PLATELET VOLUME 7.5 fL (7.4-10.4); MONOCYTES # (AUTO) 0.84 x10^3/uL (0.2-0.8); MONOCYTES % (AUTO) 9 % (2-9); NEUTROPHILS # (AUTO) 6.65 x10^3/uL (1.8-6.8); NEUTROPHILS % (AUTO) 74 % (42-75); PLATELET COUNT 220 x10^3/uL (130-400); RED BLOOD COUNT 4.05 x10^6/uL (3.82-5.3); RED CELL DISTRIBUTION WIDTH 14.6 % (9.6-15.2)
[2018-12-24 19:03] LABS: ALANINE AMINOTRANSFERASE 9 U/L (12-78); ALBUMIN 3.9 g/dL (3.4-5.0); ANION GAP 9 mmol/L (5-15); CALCIUM 9.3 mg/dL (8.5-10.1); CHLORIDE 100 mmol/L (98-107); INTERNATIONAL NORMALIZED RATIO 0.94 (0.93-1.1); PROTHROMBIN TIME 9.9 Seconds (9.6-11.5)
[2018-12-24 19:07] LABS: ALKALINE PHOSPHATASE 111 U/L (45-117); BILIRUBIN,TOTAL 0.6 mg/dL (0.2-1.0); CREATININE 5.26 mg/dL (0.55-1.02); TOTAL PROTEIN 8.8 g/dL (6.4-8.2); TROPONIN I < 0.015 ng/mL (0.000-0.045)
--- NOTE | 2018-12-24 19:09 | NUR ---
IN TO CHECK ON PT. PT RESTING QUIETLY. PT AND FAMILY DENY CURRENT NEEDS.
[2018-12-24] MEDS ORDERED: SODIUM CHLORIDE FLUSH 10ML SYR IVF ONE (20:00)
--- NOTE | 2018-12-24 20:15 | NUR ---
PT UP FOR RECHECK. AWAITING MD RECHECK AT THIS TIME.
[2018-12-24] MEDS ORDERED: SODIUM CHLORIDE FLUSH 10ML SYR IVF PRN (21:00)
[2018-12-24] MEDS: SODIUM CHLORIDE FLUSH 10ML SYR IVF SCH (22:00)
[2018-12-24] MEDS ORDERED: BISACODYL 10 MG SUPP PR PRN (22:00)
[2018-12-24] MEDS ORDERED: ONDANSETRON ODT 4 MG PO PRN (22:00)
[2018-12-24] MEDS ORDERED: ACETAMINOPHEN 325 MG TABLET PO PRN (22:00)
[2018-12-24] MEDS ORDERED: POLYETHYLENE GLYCOL 17 GM PACKET PO PRN (22:00)
[2018-12-24 22:22] LABS: HEMOGLOBIN A1C 7.8 % (4.2-6.3)
[2018-12-24 22:36] VITALS: BP 146/75
[2018-12-24] MEDS: CALCIUM ACETATE 667 MG CAPSULE PO SCH (22:56)
[2018-12-24] MEDS: CARVEDILOL 6.25 MG TABLET PO SCH (22:56)
[2018-12-24] MEDS: SODIUM BICARBONATE 650 MG TABLET PO SCH (22:56)
[2018-12-24] MEDS: HEPARIN 5,000 UNITS/ML, 1ML SQ SCH (22:58)
[2018-12-25 00:37] VITALS: BP 93/52
[2018-12-25 05:01] LABS: BASOPHILS # (AUTO) 0.02 x10^3/uL (0-0.1); BASOPHILS % (AUTO) 0 % (0-1); EOSINOPHILS # (AUTO) 0.17 x10^3/uL (0-0.4); EOSINOPHILS % (AUTO) 2 % (1-7); LYMPHOCYTES # (AUTO) 2.67 x10^3/uL (1-3.4); LYMPHOCYTES % (AUTO) 33 % (22-44); MD NO; MEAN CORPUSCULAR HEMOGLOBIN 30.9 pg (27.0-34.8); MEAN CORPUSCULAR HGB CONC 33.2 g/dL (32.4-35.8); MEAN CORPUSCULAR VOLUME 93.2 fL (80-100); MEAN PLATELET VOLUME 7.1 fL (7.4-10.4); MONOCYTES % (AUTO) 8 % (2-9); NEUTROPHILS # (AUTO) 4.62 x10^3/uL (1.8-6.8); NEUTROPHILS % (AUTO) 57 % (42-75); PLATELET COUNT 207 x10^3/uL (130-400); RED BLOOD COUNT 3.54 x10^6/uL (3.82-5.3); RED CELL DISTRIBUTION WIDTH 14.6 % (9.6-15.2)
[2018-12-25] MEDS: HEPARIN 5,000 UNITS/ML, 1ML SQ SCH (05:08)
[2018-12-25 05:14] LABS: ALANINE AMINOTRANSFERASE 11 U/L (12-78); ALBUMIN 3.3 g/dL (3.4-5.0); ANION GAP 7 mmol/L (5-15); CHLORIDE 103 mmol/L (98-107)
[2018-12-25 05:17] LABS: ALKALINE PHOSPHATASE 94 U/L (45-117); BILIRUBIN,TOTAL 0.4 mg/dL (0.2-1.0); TOTAL PROTEIN 7.7 g/dL (6.4-8.2)
[2018-12-25] MEDS: CALCIUM ACETATE 667 MG CAPSULE PO SCH (08:10)
[2018-12-25] MEDS: CARVEDILOL 6.25 MG TABLET PO SCH (08:12)
[2018-12-25 08:16] VITALS: BP 116/69
[2018-12-25] MEDS: SODIUM CHLORIDE FLUSH 10ML SYR IVF SCH (08:18)
[2018-12-25] MEDS: SODIUM BICARBONATE 650 MG TABLET PO SCH (08:22)
[2018-12-25] MEDS ORDERED: ISONIAZID 300 MG TABLET PO SCH (09:00)
[2018-12-25] MEDS ORDERED: LINAGLIPTIN 5 MG TAB PO SCH (09:00)
[2018-12-25] MEDS ORDERED: CITALOPRAM 20 MG TABLET PO SCH (09:00)
[2018-12-25] MEDS ORDERED: LOSARTAN 50MG TABLET PO SCH (09:00)
[2018-12-25] MEDS ORDERED: SENNA/DOCUSATE TABLET PO SCH (09:00)
[2018-12-25] MEDS ORDERED: AMLODIPINE 5 MG TABLET PO SCH (09:00)
[2018-12-25] MEDS ORDERED: ASPIRIN 81 MG TABLET EC PO SCH (09:00)
== END 2018-12-25 11:30 | disposition home or self-care (01) | DRG 312 ==
LOC: ED 20:37 → EDIP 20:46 → 4WST 21:42 → DCLOUNGE 12-25 11:21
PROVIDERS: ADMIT Family Medicine; ATTEND Family Medicine
DX: R55 Syncope and collapse (principal); N18.6 End stage renal disease; I12.0 Hypertensive chronic kidney disease with stage 5 chronic kidney disease or end stage renal disease; R42 Dizziness and giddiness; D63.8 Anemia in other chronic diseases classified elsewhere; E11.22 Type 2 diabetes mellitus with diabetic chronic kidney disease; E78.5 Hyperlipidemia, unspecified; Z86.15 Personal history of latent tuberculosis infection; Z99.2 Dependence on renal dialysis; Z90.49 Acquired absence of other specified parts of digestive tract; Z79.84 Long term (current) use of oral hypoglycemic drugs
CPT/HCPCS: 36415; 71045; 80053; 83036; 84484; 85025; 85610; 85730; 93005; 99285; G0378; J1644

== ENCOUNTER 2020-01-20 08:17 | Emergency (ER) | payer MEDICARE, MEDICAID ==
[~2020-01-20] VITALS: Ht 154.9 cm; Wt 78.1 kg
[~2020-01-20 08:17] MED LIST changes: +ASCO500T9 PO; +CHOL500045 PO; +DOXY-162 PO; +DOXY100T23 PO; -DOXY100T9 PO
--- NOTE | 2020-01-20 08:48 | NUR ---
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 here for antibody infusion per riki richardson. mitul tomlinson in room for evcarl. as
[2020-01-20] MEDS ORDERED: FILTER 0.22 MICRON IV ONE (09:00)
[2020-01-20] MEDS ORDERED: SODIUM CHLORIDE FLUSH 10ML SYR IVF ONE (09:00)
[2020-01-20] MEDS ORDERED: BAMLANIVIMAB 700 MG in SODIUM CHLORIDE 0.9% 180 ML IVPB ONE (09:00)
--- NOTE | 2020-01-20 09:20 | NUR ---
med req from pharm. as
--- NOTE | 2020-01-20 09:37 | NUR ---
piv est, helped to commode by daughter, valentino. as
--- NOTE | 2020-01-20 09:44 | NUR ---
drug and filter received, per pharm no consent needed. as
--- NOTE | 2020-01-20 09:53 | NUR ---
[facility] info to family member, sandrita elias. nad. as
--- NOTE | 2020-01-20 10:30 | NUR ---
med infusing no issues. as
--- NOTE | 2020-01-20 10:57 | NUR ---
infusion done, vitals updated, report to ryann foster.as
--- NOTE | 2020-01-20 10:57 | NUR ---
RECEIVED REPORT FROM ORIN DAVIS. ASSUMING CARE AT THIS TIME.
[2020-01-20 12:12] VITALS: BP 135/50
--- NOTE | 2020-01-20 12:12 | NUR ---
POST 1 HR AFTER INFUSION. VSS. CHART UP FOR RECHECK.
== END 2020-01-20 12:49 | disposition home or self-care (01) ==
LOC: ED 08:54
DX: U07.1 COVID-19 (principal); R05 Cough; R53.83 Other fatigue; M79.10 Myalgia, unspecified site; I10 Essential (primary) hypertension; E11.65 Type 2 diabetes mellitus with hyperglycemia; E78.5 Hyperlipidemia, unspecified
CPT/HCPCS: J7050; M0239; Q0239; 96365; 99284

== ENCOUNTER 2020-05-07 19:04 | Inpatient (IN) | payer MEDICARE, MEDICAID ==
[~2020-05-07] VITALS: Ht 167.6 cm; Wt 82.7 kg
[~2020-05-07 19:04] MED LIST changes: -ASPI-515 PO; +ASPI-963 PO
[2020-05-07] MEDS ORDERED: ONDANSETRON 2MG/ML, 2ML IVPush ONE (19:30)
[2020-05-07 19:36] LABS: BASOPHILS % (AUTO) 1 % (0-1); EOSINOPHILS % (AUTO) 3 % (1-7); LYMPHOCYTES % (AUTO) 21 % (22-44); MEAN CORPUSCULAR HEMOGLOBIN 31.1 pg (27.0-34.8); MEAN CORPUSCULAR HGB CONC 33.9 g/dL (32.4-35.8); MEAN PLATELET VOLUME 7.5 fL (7.4-10.4); MONOCYTES % (AUTO) 7 % (2-9); NEUTROPHILS % (AUTO) 67 % (42-75); PLATELET COUNT 233 x10^3/uL (130-400); RED BLOOD COUNT 3.75 x10^6/uL (3.82-5.3); RED CELL DISTRIBUTION WIDTH 15.9 % (9.6-15.2)
[2020-05-07 19:44] LABS: ALANINE AMINOTRANSFERASE 15 U/L (12-78); ALBUMIN 3.5 g/dL (3.4-5.0); CHLORIDE 95 mmol/L (98-107)
[2020-05-07 19:47] LABS: ALKALINE PHOSPHATASE 99 U/L (45-117); TOTAL PROTEIN 8.3 g/dL (6.4-8.2)
[2020-05-07 19:56] LABS: ANION GAP 8 mmol/L (5-15)
[2020-05-07] MEDS ORDERED: ONDANSETRON ODT 4 MG ONE (19:57)
[2020-05-07] MEDS ORDERED: ONDANSETRON 2MG/ML, 2ML ONE (20:00)
[2020-05-07 20:04] LABS: MD SCAN
[2020-05-07] MEDS ORDERED: DEXTROSE 50%, 50ML SYRINGE IVPush ONE (20:30)
[2020-05-07] MEDS ORDERED: SODIUM CHLORIDE 0.9%, 500ML IVBOLUS ONE (20:30)
[2020-05-07] MEDS ORDERED: CALCIUM GLUCONATE 0.46MEQ/1ML IVPush ONE (20:30)
[2020-05-07] MEDS ORDERED: INSULIN REGULAR 100 UNITS/ML, 3ML VIAL IVPush ONE (20:30)
[2020-05-07] MEDS ORDERED: DEXTROSE 50%, 50ML SYRINGE ONE (20:54)
[2020-05-07] MEDS ORDERED: INSULIN SINGLE DOSE, ER ONE (20:55)
[2020-05-07] MEDS ORDERED: PANTOPRAZOLE 40 MG IV ONE (20:56)
[2020-05-07] MEDS ORDERED: PANTOPRAZOLE 40 MG IV IVPush ONE (21:00)
--- NOTE | 2020-05-07 21:14 | NUR ---
jessica rn= pt medicated per apr and primary rn req
[2020-05-07] MEDS ORDERED: LOSA50TA14 PO (21:37)
[2020-05-07] MEDS ORDERED: CHOL500051 PO (21:37)
[2020-05-07] MEDS ORDERED: ASPI81TA14 PO (21:37)
[2020-05-07] MEDS ORDERED: HYDR-3342 PO (21:37)
[2020-05-07] MEDS ORDERED: AMLO-211 PO (21:37)
[2020-05-07] MEDS ORDERED: SEVE800T8 PO (21:37)
[2020-05-07 22:21] LABS: MICROSCOPIC AUTO
[2020-05-07 22:39] LABS: ANION GAP 8 mmol/L (5-15); CALCIUM 9.1 mg/dL (8.5-10.1); CHLORIDE 98 mmol/L (98-107); CREATININE 8.63 mg/dL (0.55-1.02)
--- NOTE | 2020-05-07 22:51 | NUR ---
REPORT GIVEN TO RUSSELL DAVIS.
[2020-05-07 23:23] VITALS: BP 92/53
[2020-05-08] MEDS ORDERED: ONDANSETRON 2MG/ML, 2ML IVPush PRN
[2020-05-08] MEDS ORDERED: PROMETHAZINE 25 MG/ML, 1ML IM PRN
[2020-05-08] MEDS ORDERED: ACETAMINOPHEN 325 MG TABLET PO PRN
[2020-05-08] MEDS ORDERED: SODIUM ZIRCONIUM CYCLOSILICATE 5 GM PO ONE
[2020-05-08] MEDS ORDERED: morphine SULFATE 10 MG/ML, 1ML IVPush PRN
[2020-05-08] MEDS ORDERED: hydrALAzine 20 MG/ML, 1ML IVPush PRN
[2020-05-08 00:15] LABS: TROPONIN I < 0.015 ng/mL (0.000-0.045)
[2020-05-08 00:42] VITALS: BP 111/63
[2020-05-08 00:55] VITALS: BP 129/52
[2020-05-08 03:45] VITALS: BP 125/88
[2020-05-08] MEDS: HEPARIN 5,000 UNITS/ML, 1ML SQ SCH ×2 (04:25→09:10)
[2020-05-08] MEDS: SODIUM BICARBONATE 650 MG TABLET PO SCH ×2 (04:25→09:10)
[2020-05-08 04:53] LABS: ANION GAP 10 mmol/L (5-15); CALCIUM 8.8 mg/dL (8.5-10.1); CHLORIDE 98 mmol/L (98-107); CREATININE 5.17 mg/dL (0.55-1.02)
[2020-05-08 07:29] VITALS: BP 107/62
[2020-05-08] MEDS ORDERED: PANTOPRAZOLE 40MG TABLET PO SCH (07:30)
[2020-05-08] MEDS ORDERED: ASPIRIN 81 MG TABLET EC PO SCH (09:00)
[2020-05-08] MEDS ORDERED: LINAGLIPTIN 5 MG TAB PO SCH (09:00)
[2020-05-08] MEDS ORDERED: CITALOPRAM 20 MG TABLET PO SCH (09:00)
[2020-05-08] MEDS ORDERED: AMLODIPINE 10 MG TAB PO SCH (09:00)
[2020-05-08] MEDS: SEVELAMER CARBONATE 800MG TAB PO SCH ×2 (09:09)
[2020-05-08] MEDS: CARVEDILOL 6.25 MG TABLET PO SCH ×2 (09:10)
== END 2020-05-08 11:15 | disposition home or self-care (01) | DRG 640 ==
LOC: ED 21:22 → EDIP 22:15 → 4WST 23:21 → DCLOUNGE 05-08 11:09
PROVIDERS: ADMIT Emergency Medicine; ATTEND Internal Medicine
PROC: 5A1D70Z Performance of Urinary Filtration, Intermittent, Less than 6 Hours Per Day (ICD-10-PCS; principal; 2020-05-08)
DX: E87.5 Hyperkalemia (principal); N18.6 End stage renal disease; I12.0 Hypertensive chronic kidney disease with stage 5 chronic kidney disease or end stage renal disease; E87.1 Hypo-osmolality and hyponatremia; D63.1 Anemia in chronic kidney disease; E11.22 Type 2 diabetes mellitus with diabetic chronic kidney disease; E78.5 Hyperlipidemia, unspecified; E87.8 Other disorders of electrolyte and fluid balance, not elsewhere classified; Z79.4 Long term (current) use of insulin; Z86.15 Personal history of latent tuberculosis infection; Z99.2 Dependence on renal dialysis; Z90.49 Acquired absence of other specified parts of digestive tract
CPT/HCPCS: 36415; 74176; 80048; 80053; 81001; 82962; 83036; 83690; 84484; 85025; 90935; 93005; 96361; 96374; 96375; 99285; G0378; J0610; J1644; J2405; C9113; J1815; J7040

== ENCOUNTER 2020-05-12 15:52 | Observation (INO) | payer MEDICARE, MEDICAID ==
[~2020-05-12] VITALS: Ht 172.7 cm; Wt 78.5 kg
[~2020-05-12 15:52] MED LIST changes: +AMLO-211 PO; +ASPI81TA14 PO; +CHOL500051 PO; +LOSA50TA14 PO; +SEVE800T8 PO
[2020-05-12] MEDS ORDERED: ONDANSETRON 2MG/ML, 2ML IVPush ONE (16:00)
[2020-05-12] MEDS: MORPHINE SULFATE 4 MG/ML, 1ML IVPush PRN ×2 (16:24→17:05)
[2020-05-12] MEDS ORDERED: MORPHINE SULFATE 4 MG/ML, 1ML ONE ×2 (16:24→17:04)
[2020-05-12] MEDS ORDERED: ONDANSETRON 2MG/ML, 2ML ONE (16:24)
[2020-05-12 16:29] LABS: BASOPHILS % (AUTO) 1 % (0-1); EOSINOPHILS % (AUTO) 5 % (1-7); LYMPHOCYTES % (AUTO) 31 % (22-44); MEAN CORPUSCULAR HEMOGLOBIN 31.4 pg (27.0-34.8); MEAN CORPUSCULAR HGB CONC 33.4 g/dL (32.4-35.8); MEAN PLATELET VOLUME 7.6 fL (7.4-10.4); MONOCYTES % (AUTO) 11 % (2-9); NEUTROPHILS % (AUTO) 52 % (42-75); PLATELET COUNT 241 x10^3/uL (130-400); RED BLOOD COUNT 3.49 x10^6/uL (3.82-5.3); RED CELL DISTRIBUTION WIDTH 15.7 % (9.6-15.2)
[2020-05-12] MEDS ORDERED: PLEASE ENTER HEIGHT AND WEIGHT MC SCH (16:30)
[2020-05-12 16:31] LABS: MD NO
[2020-05-12 16:38] LABS: ALBUMIN 3.6 g/dL (3.4-5.0); ANION GAP 8 mmol/L (5-15); CALCIUM 9.4 mg/dL (8.5-10.1); CHLORIDE 100 mmol/L (98-107); CREATININE 4.18 mg/dL (0.55-1.02)
[2020-05-12 16:42] LABS: TROPONIN I < 0.015 ng/mL (0.000-0.045)
[2020-05-12] MEDS ORDERED: NITROGLYCERIN SINGLE TAB 0.4 MG SL PRN (17:00)
[2020-05-12 18:45] VITALS: BP 166/68
[2020-05-12] MEDS ORDERED: NITROGLYCERIN 0.4 MG BOTTLE (25 TABS) SL PRN (19:00)
[2020-05-12] MEDS ORDERED: hydrALAzine 20 MG/ML, 1ML IVPush PRN (19:00)
[2020-05-12] MEDS ORDERED: LIDODERM 5% PATCH TD PRN (19:00)
[2020-05-12] MEDS ORDERED: DOCUSATE 100 MG CAPSULE PO PRN (19:00)
[2020-05-12] MEDS ORDERED: MELATONIN 5 MG TABLET PO PRN (19:00)
[2020-05-12] MEDS ORDERED: ACETAMINOPHEN 325 MG TABLET PO PRN (19:00)
[2020-05-12 19:29] VITALS: BP 166/68
[2020-05-12] MEDS: HEPARIN 5,000 UNITS/ML, 1ML SQ SCH (20:25)
[2020-05-12 20:40] VITALS: BP 122/66
[2020-05-12] MEDS: CARVEDILOL 6.25 MG TABLET PO SCH (21:23)
[2020-05-12 23:07] LABS: TROPONIN I < 0.015 ng/mL (0.000-0.045)
[2020-05-13 01:57] VITALS: BP 99/56
[2020-05-13] MEDS: HEPARIN 5,000 UNITS/ML, 1ML SQ SCH ×2 (04:31→11:49)
[2020-05-13 04:45] LABS: BASOPHILS % (AUTO) 3 % (0-1); EOSINOPHILS % (AUTO) 7 % (1-7); LYMPHOCYTES % (AUTO) 39 % (22-44); MEAN CORPUSCULAR HEMOGLOBIN 31.8 pg (27.0-34.8); MEAN CORPUSCULAR HGB CONC 33.5 g/dL (32.4-35.8); MEAN PLATELET VOLUME 7.8 fL (7.4-10.4); MONOCYTES % (AUTO) 11 % (2-9); NEUTROPHILS % (AUTO) 39 % (42-75); PLATELET COUNT 228 x10^3/uL (130-400); RED BLOOD COUNT 3.12 x10^6/uL (3.82-5.3); RED CELL DISTRIBUTION WIDTH 16.1 % (9.6-15.2)
[2020-05-13 04:54] LABS: ANION GAP 7 mmol/L (5-15); CALCIUM 8.4 mg/dL (8.5-10.1); CHLORIDE 100 mmol/L (98-107); CHOLESTEROL, TOTAL 153 mg/dL (140-239); CREATININE 5.59 mg/dL (0.55-1.02); TRIGLYCERIDES 145 mg/dL (50-200); VLDL CHOLESTEROL 29 mg/dL (0-25)
[2020-05-13 05:04] LABS: HDL CHOL % 33 % (28-40); HDL CHOLESTEROL (DIRECT) 51 mg/dL (40-60); LDL CHOLESTEROL,CALCULATED 73 mg/dL (54-169); LDL/HDL RATIO 1.4 (0.5-3.0); TROPONIN I < 0.015 ng/mL (0.000-0.045)
[2020-05-13 06:01] LABS: MD SCAN
[2020-05-13] MEDS ORDERED: ASCORBIC ACID 500 MG TABLET PO SCH (08:00)
[2020-05-13 08:03] VITALS: BP 143/71
[2020-05-13] MEDS ORDERED: REGADENOSON 0.4 MG/5 ML SYRINGE ONE (08:18)
[2020-05-13] MEDS ORDERED: ASPIRIN 81 MG TABLET EC PO SCH (09:00)
[2020-05-13] MEDS ORDERED: LINAGLIPTIN 5 MG TAB PO SCH (09:00)
[2020-05-13] MEDS ORDERED: AMLODIPINE 10 MG TAB PO SCH (09:00)
[2020-05-13] MEDS ORDERED: CHOLECALCIFEROL 5,000u TAB PO SCH (09:00)
[2020-05-13] MEDS ORDERED: LOSARTAN 50MG TABLET PO SCH (09:00)
[2020-05-13] MEDS: CARVEDILOL 6.25 MG TABLET PO SCH (10:23)
[2020-05-13] MEDS: SEVELAMER CARBONATE 800MG TAB PO SCH ×2 (10:23→11:49)
[2020-05-13 10:27] VITALS: BP 126/61
[2020-05-13 13:24] VITALS: BP 118/64
== END 2020-05-13 16:51 | disposition home or self-care (01) ==
LOC: ED 16:21 → EDIP 17:51 → INTOOBSV 17:51 → 5SO 18:41 → DCLOUNGE 05-13 16:42
PROVIDERS: ADMIT Hospitalist; ATTEND Internal Medicine
DX: R07.89 Other chest pain (principal); I13.11 Hypertensive heart and chronic kidney disease without heart failure, with stage 5 chronic kidney disease, or end stage renal disease; E11.22 Type 2 diabetes mellitus with diabetic chronic kidney disease; N18.6 End stage renal disease; E11.21 Type 2 diabetes mellitus with diabetic nephropathy; E11.69 Type 2 diabetes mellitus with other specified complication; E78.5 Hyperlipidemia, unspecified; D63.1 Anemia in chronic kidney disease; Z22.7 Latent tuberculosis; Z79.899 Other long term (current) drug therapy; Z99.2 Dependence on renal dialysis; Z86.16 Personal history of COVID-19; Z79.82 Long term (current) use of aspirin; Z86.15 Personal history of latent tuberculosis infection
CPT/HCPCS: 36415; 71045; 78452; 80048; 80061; 82040; 83735; 83880; 84100; 84439; 84443; 84484; 85025; 93005; 93017; 93306; 96372; 96374; 96375; 96376; 99285; A9502; G0378; J1644; J2270; J2405; J2785

== ENCOUNTER 2020-07-19 14:16 | Emergency (ER) | payer MEDICARE, MEDICAID ==
[~2020-07-19] VITALS: Ht 167.6 cm; Wt 75.0 kg
[2020-07-19 14:19] VITALS: BP 159/52
--- NOTE | 2020-07-19 15:08 | NUR ---
PT BIB EMS FROM DIALYSIS. REPORTING SEVERE CRAMPING IN HANDS AT DIALYSIS. HAS HAPPENED BEFORE, JUST WORSENED. GIVEN TYLENOL BY EMS. NO INJURIES.
[2020-07-19 15:30] LABS: BASOPHILS % (AUTO) 1 % (0-1); EOSINOPHILS % (AUTO) 4 % (1-7); LYMPHOCYTES % (AUTO) 30 % (22-44); MEAN CORPUSCULAR HEMOGLOBIN 30.2 pg (27.0-34.8); MEAN CORPUSCULAR HGB CONC 33.8 g/dL (32.4-35.8); MEAN PLATELET VOLUME 7.3 fL (7.4-10.4); MONOCYTES % (AUTO) 9 % (2-9); NEUTROPHILS % (AUTO) 57 % (42-75); PLATELET COUNT 200 x10^3/uL (130-400); RED BLOOD COUNT 3.41 x10^6/uL (3.82-5.3); RED CELL DISTRIBUTION WIDTH 14.6 % (9.6-15.2)
[2020-07-19 15:31] LABS: MD NO
[2020-07-19 15:38] LABS: ALBUMIN 3.4 g/dL (3.4-5.0); ANION GAP 6 mmol/L (5-15); CALCIUM 8.9 mg/dL (8.5-10.1); CHLORIDE 102 mmol/L (98-107); CREATININE 4.41 mg/dL (0.55-1.02)
== END 2020-07-19 16:59 | disposition home or self-care (01) ==
LOC: ED 14:23
DX: M79.641 Pain in right hand (principal); M79.642 Pain in left hand; E11.9 Type 2 diabetes mellitus without complications; I12.0 Hypertensive chronic kidney disease with stage 5 chronic kidney disease or end stage renal disease; N18.6 End stage renal disease; R94.31 Abnormal electrocardiogram [ECG] [EKG]; Z99.2 Dependence on renal dialysis
CPT/HCPCS: 36415; 80048; 82040; 85025; 93005; 99284

== ENCOUNTER 2020-08-29 00:20 | Observation (INO) | payer MEDICARE, MEDICAID ==
[~2020-08-29] VITALS: Ht 167.6 cm; Wt 80.0 kg
--- NOTE | 2020-08-29 00:52 | NUR ---
PT BIBA FROM HOME FOR L SIDED CP. PER FAMILY TO TRANSLATE AT HOME. STATES IT STARTED SHORTLY AFTER SHE GOT HOME FROM DIALYSIS () ~1300. PT DESCRIBES A "STUCK FEELING" IN EPIGASTRIC REGION. DENIES ANY N/V. 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 PLACED ON MONITORS. CALL LIGHT IN REACH. DAUGHTER ENROUTE. WILL CTM.
[2020-08-29 00:57] LABS: BASOPHILS % (AUTO) 1 % (0-1); EOSINOPHILS % (AUTO) 3 % (1-7); LYMPHOCYTES % (AUTO) 23 % (22-44); MEAN CORPUSCULAR HEMOGLOBIN 31.1 pg (27.0-34.8); MEAN CORPUSCULAR HGB CONC 33.7 g/dL (32.4-35.8); MEAN PLATELET VOLUME 7.1 fL (7.4-10.4); MONOCYTES % (AUTO) 9 % (2-9); NEUTROPHILS % (AUTO) 64 % (42-75); PLATELET COUNT 212 x10^3/uL (130-400); RED BLOOD COUNT 3.23 x10^6/uL (3.82-5.3); RED CELL DISTRIBUTION WIDTH 14.8 % (9.6-15.2)
[2020-08-29] MEDS ORDERED: SODIUM CHLORIDE FLUSH 10ML SYR IVF ONE (01:00)
[2020-08-29 01:08] LABS: ALANINE AMINOTRANSFERASE 17 U/L (12-78); ALBUMIN 3.3 g/dL (3.4-5.0); ANION GAP 7 mmol/L (5-15); CALCIUM 8.9 mg/dL (8.5-10.1); CHLORIDE 96 mmol/L (98-107); CREATININE 5.05 mg/dL (0.55-1.02)
[2020-08-29 01:14] LABS: ALKALINE PHOSPHATASE 99 U/L (45-117); BILIRUBIN,TOTAL 0.5 mg/dL (0.2-1.0); TOTAL PROTEIN 7.7 g/dL (6.4-8.2); TROPONIN I < 0.015 ng/mL (0.000-0.045)
--- NOTE | 2020-08-29 01:45 | NUR ---
Patient is resting comfortably in bed. Bed in lowest, rails engaged, call light on lap. Vital Signs within normal limits. WCTM. DAUGHTER AT BEDSIDE. PRIMITIVO
--- NOTE | 2020-08-29 01:50 | NUR ---
Note geovanna in EDM - 08/29/20 at 0152 by [email or web address] pt c/o of not being able to sleep for 4 days states only being able to sleep for 20 minute increments. pt believes it is because of sully material he was working with. attached to monitors, vss, nadn bed in low position, rails engaged, call light on lap
--- NOTE | 2020-08-29 02:51 | NUR ---
Patient is resting comfortably in bed. Bed in lowest, rails engaged, call light on lap. Vital Signs within normal limits. WCTM.
--- NOTE | 2020-08-29 03:34 | NUR ---
Patient is resting comfortably in bed. Bed in lowest, rails engaged, call light on lap. Vital Signs within normal limits. WCTM. condition unchanged.
[2020-08-29] MEDS ORDERED: SENNA/DOCUSATE TABLET ONE ×2 (03:44→03:52)
[2020-08-29] MEDS ORDERED: MAALOX/HYOSCYAMINE/LIDOCAINE 45 ML BTL ONE (03:44)
[2020-08-29] MEDS ORDERED: HEPARIN 5,000 UNITS/ML, 1ML ONE (03:44)
[2020-08-29] MEDS: SENNA/DOCUSATE TABLET PO SCH ×2 (03:52→09:24)
[2020-08-29] MEDS: HEPARIN 5,000 UNITS/ML, 1ML SQ SCH ×2 (03:53→10:50)
[2020-08-29] MEDS ORDERED: OXYcodone/APAP 5/325MG TABLET PO PRN (04:00)
[2020-08-29] MEDS ORDERED: GUAIFENESIN/DM 200-20MG, 10ML UDC PO PRN (04:00)
[2020-08-29] MEDS ORDERED: ACETAMINOPHEN 325 MG TABLET PO PRN (04:00)
[2020-08-29] MEDS ORDERED: ENALAPRILAT 1.25 MG/ML, 2ML IVPush PRN (04:00)
[2020-08-29] MEDS ORDERED: METHOCARBAMOL 500 MG TABLET PO PRN (04:00)
[2020-08-29] MEDS ORDERED: MAALOX/HYOSCYAMINE/LIDOCAINE 45 ML BTL PO ONE (04:00)
[2020-08-29] MEDS ORDERED: TEMAZEPAM 15 MG CAPSULE PO PRN (04:00)
[2020-08-29] MEDS ORDERED: ONDANSETRON 2MG/ML, 2ML IVPush PRN (04:00)
--- NOTE | 2020-08-29 04:30 | NUR ---
pt up to bedside commode and back to bed. toleretaed well. urinated. attached to monitors, vss with elevated bp. nadn. wctm
--- NOTE | 2020-08-29 04:48 | NUR ---
pt given a pillow for comfort. nadn. A&ox4. breathing even and unlabored. pt attempting to fall a sleep. bed in low. rails engaged, call light on lap. monitors connected. vss with elevated bp
--- NOTE | 2020-08-29 04:58 | NUR ---
gave report to iglesia foster.
[2020-08-29 05:17] LABS: TROPONIN I < 0.015 ng/mL (0.000-0.045)
[2020-08-29 05:34] VITALS: BP 168/70
[2020-08-29 06:42] VITALS: BP 158/60
[2020-08-29] MEDS ORDERED: ASCORBIC ACID 500 MG TABLET PO SCH (08:00)
[2020-08-29] MEDS ORDERED: OMEPRAZOLE 20 MG CAPSULE.DR PO ONE (09:00)
[2020-08-29] MEDS ORDERED: OMEPRAZOLE 20 MG CAPSULE.DR PO SCH (09:00)
[2020-08-29] MEDS ORDERED: LOSARTAN 50MG TABLET PO SCH (09:00)
[2020-08-29] MEDS ORDERED: ASPIRIN 81 MG TABLET EC PO SCH (09:00)
[2020-08-29] MEDS ORDERED: CARVEDILOL 6.25 MG TABLET PO SCH (09:00)
[2020-08-29] MEDS ORDERED: LINAGLIPTIN 5 MG TAB PO SCH (09:00)
[2020-08-29] MEDS ORDERED: AMLODIPINE 10 MG TAB PO SCH (09:00)
[2020-08-29] MEDS ORDERED: CHOLECALCIFEROL 5,000u TAB PO SCH (09:00)
[2020-08-29] MEDS: SEVELAMER CARBONATE 800MG TAB PO SCH ×2 (09:24→10:50)
[2020-08-29 11:47] LABS: TROPONIN I < 0.015 ng/mL (0.000-0.045)
[2020-08-29] MEDS ORDERED: PANT40TA3 PO (12:51)
[2020-08-29] MEDS ORDERED: SENN-211 PO (12:54)
[2020-08-29 13:22] VITALS: BP 162/69
== END 2020-08-29 16:30 | disposition home or self-care (01) ==
LOC: ED 02:30 → EDIP 03:49 → INTOOBSV 03:49 → 4EST 05:23 → DCLOUNGE 16:22
PROVIDERS: ADMIT Internal Medicine; ATTEND Internal Medicine
DX: R07.9 Chest pain, unspecified (principal); K59.00 Constipation, unspecified; I12.0 Hypertensive chronic kidney disease with stage 5 chronic kidney disease or end stage renal disease; E11.22 Type 2 diabetes mellitus with diabetic chronic kidney disease; N18.6 End stage renal disease; E87.1 Hypo-osmolality and hyponatremia; E87.8 Other disorders of electrolyte and fluid balance, not elsewhere classified; D63.1 Anemia in chronic kidney disease; E66.9 Obesity, unspecified; E78.5 Hyperlipidemia, unspecified; D68.9 Coagulation defect, unspecified; Z79.899 Other long term (current) drug therapy; Z99.2 Dependence on renal dialysis; Z79.82 Long term (current) use of aspirin; Z86.16 Personal history of COVID-19
CPT/HCPCS: 36415; 71045; 80053; 83690; 84484; 85025; 93005; 96372; 99285; G0378; J1644

== ENCOUNTER 2020-09-15 08:19 | Emergency (ER) | payer MEDICARE, MEDICAID ==
[~2020-09-15] VITALS: Ht 162.6 cm; Wt 79.8 kg
[~2020-09-15 08:19] MED LIST changes: +PANT40TA3 PO; +SENN-211 PO
[2020-09-15 10:24] LABS: BASOPHILS % (AUTO) 1 % (0-1); EOSINOPHILS % (AUTO) 2 % (1-7); LYMPHOCYTES % (AUTO) 29 % (22-44); MEAN CORPUSCULAR HEMOGLOBIN 30.5 pg (27.0-34.8); MEAN CORPUSCULAR HGB CONC 33.5 g/dL (32.4-35.8); MONOCYTES % (AUTO) 8 % (2-9); NEUTROPHILS % (AUTO) 60 % (42-75); PLATELET COUNT 258 x10^3/uL (130-400); RED BLOOD COUNT 3.69 x10^6/uL (3.82-5.3); RED CELL DISTRIBUTION WIDTH 15.2 % (9.6-15.2)
--- NOTE | 2020-09-15 10:30 | NUR ---
walked to bathroom, ua to lab, was not able to give stool sample. bp high, did not take her meds today. L arm fistula for dialysis. family and pt poor historians. was admitted recently here for cp/sob. no sob/cp today, just abdominal complaints and diarrhea. labs pending. as
[2020-09-15 10:33] LABS: ALANINE AMINOTRANSFERASE 17 U/L (12-78); ALBUMIN 3.6 g/dL (3.4-5.0); ANION GAP 5 mmol/L (5-15); CALCIUM 9.2 mg/dL (8.5-10.1); CHLORIDE 96 mmol/L (98-107)
[2020-09-15 10:35] LABS: ALKALINE PHOSPHATASE 133 U/L (45-117); BILIRUBIN,TOTAL 0.5 mg/dL (0.2-1.0); CREATININE 7.35 mg/dL (0.55-1.02); TOTAL PROTEIN 7.9 g/dL (6.4-8.2)
[2020-09-15 10:41] LABS: MICROSCOPIC AUTO
[2020-09-15] MEDS ORDERED: CEFDINIR 300 MG CAPSULE ONE (10:55)
[2020-09-15 11:00] VITALS: BP 182/66
[2020-09-15] MEDS ORDERED: CEFDINIR 300 MG CAPSULE PO ONE (11:00)
== END 2020-09-15 11:29 | disposition home or self-care (01) ==
LOC: ED 10:46
DX: N30.00 Acute cystitis without hematuria (principal); R53.1 Weakness; M54.5 Low back pain; I10 Essential (primary) hypertension; E78.5 Hyperlipidemia, unspecified; E11.9 Type 2 diabetes mellitus without complications
CPT/HCPCS: 36415; 80053; 81001; 83605; 85025; 87040; 87086; 93005; 99284